=== PATIENT | male | born 1970 | race Caucasian/White ===

== ENCOUNTER → 2024-07-31 | Outpatient (CLI) | payer SELFPAY, OTHER | END | disposition home or self-care (01) | DX: G47.33 Obstructive sleep apnea (adult) (pediatric) (principal) | CPT/HCPCS: 95806 ==

== ENCOUNTER → 2024-09-21 | Outpatient (CLI) | payer OTHER, SELFPAY | END | disposition home or self-care (01) | LOC: SL 16:53 | PROVIDERS: Referring Provider Internal Medicine Sleep Medicine; Visit Provider Internal Medicine Sleep Medicine | DX: Z00.00 Encounter for general adult medical examination without abnormal findings (principal) ==